=== PATIENT | female | born 1965 | race Two or more races ===

== ENCOUNTER 2024-11-09 11:33 | Day surgery (SDC) | payer OTHER ==
[2024-11-02 15:20] VITALS: BP 103/70
[~2024-11-09] VITALS: Ht 162.6 cm; Wt 56.2 kg
[~2024-11-09 11:33] MED LIST: COZAAR25 MG PO; LEVO-T88 MCG PO; METROGEL-VAGINA70 GM VG; ROSUVASTATIN CAL5 MG PO; VAGISIL CREAM28 GM TP; ZOVIRAX400 MG PO
[2024-11-09] MEDS ORDERED: BUPIVACAINE HCL 30 ML VIAL IJ ONE (14:00)
[2024-11-09] MEDS ORDERED: LIDOCAINE HCL 1%/EPINEPHRINE 20ML VIAL IJ ONE (14:00)
[2024-11-09] MEDS ORDERED: POVIDONE-IODINE 118 ML BOTT TOP ONE (14:00)
[2024-11-09] MEDS ORDERED: DIBUCAINE 30 GM TUBE RECTAL ONE (14:00)
[2024-11-09] MEDS ORDERED: HEMOSTATIC MATRIX 1 KIT KIT TOP ONE (14:00)
[2024-11-09] MEDS ORDERED: CEFTRIAXONE SODIUM 2,000 MG VIAL IV ONE (14:15)
[2024-11-09] MEDS ORDERED: METRONIDAZOLE/SODIUM CHLORIDE 500 MG/100 ML PIGGYBACK IV ONE (14:15)
[2024-11-09] MEDS ORDERED: TRAM1TAB98 PO (15:00)
[2024-11-09] MEDS ORDERED: INTESTINEX680 M1 PO (15:00)
== END 2024-11-09 19:30 | disposition home or self-care (01) ==
LOC: CIR.AMB 11:33
PROVIDERS: ATTEND Surgery
DX: D12.8 Benign neoplasm of rectum (principal); K62.0 Anal polyp